=== PATIENT | male | born 1945 | race Caucasian/White ===

== ENCOUNTER → 2019-02-19 | Outpatient (CLI) | payer OTHER ==
[~2019-02-19] MED LIST: COZAAR 25 MG TA25 M2 PO; ELIQUIS5 MG PO; FLOMAX0.4 MG PO; METFORMIN HCL500 M3 PO; MULTAQ 400 MG400 MG PO
[2019-02-19 10:02] LABS: HEMATOCRIT 41.9 % (42.0-52.0); HEMOGLOBIN 14.1 gm/dL (14.0-18.0); MCH 30.6 pg (26.0-34.0); MCHC 33.6 g/dL (28.0-37.0); RBC 4.6 mil/uL (4.50-6.00); RDW 15.6 % (10.5-14.5); WBC 6.8 thou/uL (4.0-11.0)
[2019-02-19 10:21] LABS: ALBUMIN 3.3 g/dL (3.4-5.0); CREATININE 1.2 mg/dL (0.7-1.3); POTASSIUM 4.8 mmol/L (3.5-5.1); TOTAL BILIRUBIN 1.4 mg/dL (<0.1-1.0); TOTAL PROTEIN 7.1 g/dL (6.4-8.2)
== END ==
LOC: CAT 09:04
PROVIDERS: Internal Medicine Cardiovascular Disease
DX: J43.9 Emphysema, unspecified (principal); I25.10 Atherosclerotic heart disease of native coronary artery without angina pectoris; K80.20 Calculus of gallbladder without cholecystitis without obstruction; M47.814 Spondylosis without myelopathy or radiculopathy, thoracic region

== ENCOUNTER 2019-02-26 09:20 | Observation (INO) | payer OTHER ==
[~2019-02-26] VITALS: Ht 175.3 cm; Wt 88.7 kg
[2019-02-26] VITALS (16 sets, daily range): BP systolic 125–154; BP diastolic 76–99
[2019-02-26] MEDS ORDERED: ELIQUIS5 MG PO (10:14)
[2019-02-26] MEDS ORDERED: METFORMIN HCL500 M3 PO (10:15)
[2019-02-26] MEDS ORDERED: COZAAR 25 MG TA25 M2 PO (10:15)
[2019-02-26] MEDS ORDERED: FLOMAX0.4 MG PO (10:16)
[2019-02-26 10:17] LABS: HEMATOCRIT 38.7 % (42.0-52.0); HEMOGLOBIN 12.9 gm/dL (14.0-18.0); MCH 30.3 pg (26.0-34.0); MCHC 33.3 g/dL (28.0-37.0); MCV 91.1 fL (80.0-100.0); PLATELET COUNT 302 thou/uL (150-400); RBC 4.25 mil/uL (4.50-6.00); WBC 5.8 thou/uL (4.0-11.0)
[2019-02-26 10:32] LABS: CALCIUM 9.9 mg/dL (8.5-10.1); CREATININE 1.1 mg/dL (0.7-1.3); POTASSIUM 4.1 mmol/L (3.5-5.1)
[2019-02-26 10:36] LABS: ALBUMIN 3.1 g/dL (3.4-5.0); TOTAL BILIRUBIN 0.6 mg/dL (<0.1-1.0); TOTAL PROTEIN 7.2 g/dL (6.4-8.2)
[2019-02-26 10:40] LABS: APTT 31.3 Seconds (24.5-32.8); INR 1.1; PROTIME 11.6 Seconds (9.3-11.4)
[2019-02-26 11:41] LABS: ABSOLUTE NEUTROPHILS 3.6 thou/uL (1.4-8.2); METAMYELOCYTES 1 %; PLATELET ESTIMATE NORMAL
--- NOTE | 2019-02-26 19:26 | NUR ---
CCU OVERFLOW ADMIT TO ICU AT 1730. R GROIN HEMOSTASIS AT 1630, BEDREST X6H. KENJI DIET. DAUGHTER GIVEN ICU VISITOR POLICY.
[2019-02-27] VITALS (10 sets, daily range): BP systolic 118–143; BP diastolic 65–97
--- NOTE | 2019-02-27 07:19 | NUR ---
PT RESTED WELL THROUGHOUT THE NIGHT. ROGEL OUT AT 5:30. PT DUE TO VOID. PT OFF OXYGEN THIS AM. DRESSING INTACT. NO DRAINAGE.
[2019-02-27] MEDS ORDERED: MULTAQ 400 MG400 MG PO (08:57)
--- NOTE | 2019-02-27 15:00 | NUR ---
PATIENT ROGEL DISCONTINUED ON PSYCHOLOGY ASSISTANT THIS AM. NURSE BLADDER SCANNED HIM THIS AM AND FOUND HIM TO HAVE A VOLUME OF 93 ML. THIS WAS RELAYED TO CARDIOLOGY WHO EXPRESSED TO KEEP HIM UNTIL HE VOIDS. NURSE PROVIDED WATER THEN BLADDER SCANNED HIM AGAIN THIS AFTERNOON. HE HAD 150ML. HE WAS ABLE TO VOID AND THE VOLUME IS DOCUMENTED. HE WAS DISCHARGED TO HOME WITH DAUGHTER.
--- NOTE | 2019-03-01 12:27 | P ---
[facility] [place] [address] PROCEDURE REPORT Name: BRENDANLESLEE D Room #: 246-P [facility]..#: [id number] Admission: 02/26/19 Attend Phys: Toby Velasco MD Discharge: 02/27/19 Date of : 41 Report #: [id number] THIS REPORT FOR: //name// CC: Brennan Velasco DATE OF SERVICE: 02/26/2019 PREOPERATIVE DIAGNOSIS: Atrial fibrillation. POSTOPERATIVE DIAGNOSIS: Atrial fibrillation. PROCEDURES PERFORMED: 1. Atrial fibrillation ablation, CPT code 84302. 2. 3D mapping, CPT code 59827. 3. Intracardiac echo, CPT code 31459. 4. Focal ablation, CPT code 99045. HISTORY: The patient is a 73-year-old with coronary artery disease, status post CABG and AFib, here for ablation. ANESTHESIA: The patient underwent general anesthesia with no anesthesia-related complications. DESCRIPTION OF PROCEDURE: The patient underwent informed consent. We discussed the details of the procedure including the risks, which included but not limited to bleeding, vascular damage, cardiac perforation, stroke and OH. He understood these risks and is willing to proceed. The patient was brought to the EP laboratory in a fasting and sedated state, prepped and draped in a sterile fashion. I injected lidocaine at the right groin region, obtaining the access to the right femoral vein x 3, placing an 8, 9 and 7-Chinese short sheath. Next, under fluoroscopy, I placed a decapolar catheter easily in the coronary sinus, and ICE catheter in the right atrium. Using intracardiac ultrasound, I created a detailed 3D geometry of the left atrium with specific emphasis of the left and right-sided pulmonary veins. I merged this with the patient's cardiac CT scan. The patient was systemically heparinized, and a transseptal was performed using an SL1 sheath and a [place] needle. The SL1 sheath was advanced into the left atrium, and then I exchanged it for the cryo sheath. Next, via the cryo sheath, I placed a [employer] Ross LASSO catheter, and created a detailed 3D geometry and voltage map of the left atrium. At baseline, the patient was in atrial fibrillation with a ventricular cycle length of 815 milliseconds, QRS duration 85 milliseconds and a QT interval of 390 milliseconds. Next, I started by isolating the left superior pulmonary vein. I performed two 4-minute freezes in this vein. During the first freeze, the vein isolated within 80 seconds, but when it thawed it had reconnected. I [facility] [address] [place] [address] PROCEDURE REPORT Name: LESLEE CARDONA Chencho Room #: 246-P [facility]..#: [id number] Admission: 02/26/19 Attend Phys: Toby Velasco MD Discharge: 02/27/19 Date of : 41 Report #: [id number] performed a second freeze with very good temps and then it appeared to have isolated during this second freeze. The patient did have a slight vagal response with some bradycardia and hypotension after freezing the left superior pulmonary vein. I then turned my attention to the left inferior pulmonary vein. I performed a 4-minute freeze, followed by a 3-minute freeze. This vein isolated during the first freeze within 20 seconds. I then turned my attention to the right-sided pulmonary veins. Of note, I had difficulty finding a good phrenic nerve for pacing. It was slightly weaker phrenic nerve than usual. Therefore, I monitored it very closely. The right superior pulmonary vein underwent an initial freeze that came off after about 40 seconds due to poor temps. I then performed a second freeze and the attempts were much better, but I came off of at 190 seconds as the phrenic nerve appeared to be weakening. I therefore went and performed a roofline. I performed a posterior roofline with 3 lesions anchored from the left superior pulmonary vein and 3 lesions from the right superior pulmonary vein; each lesion set was of 3 minutes' duration. I also performed 2 freezes of the posterior wall, anchored from the left inferior pulmonary vein. I then went and re-interrogated the right superior pulmonary vein. This remained isolated from the first freeze. I then turned my attention to the right inferior pulmonary vein. I performed a 190-second freeze, came off early as this had slightly weakened. At this point, I decided to perform a voltage map and the right inferior pulmonary vein was still connected, but the other veins were all isolated. After I waited for a period of time, I performed two 3-minute freezes of the right inferior pulmonary vein, somewhat sub-selective and focusing on the inferior aspect of the vein, which by voltage map was still connected. After performing these 2 freezes, a repeat voltage map was performed. There was wide circumferential ablation of the pulmonary veins as well as isolation of the roofline. There was still a stripe of atrial tissue at the posterior aspect of the left atrium. Post-ablation, the right phrenic was back to its full strength. The patient underwent successful DC cardioversion with mandaeism of sinus rhythm. Intracardiac ultrasound verified there was no pericardial effusion. A voltage map was created in sinus rhythm, which showed wide circumferential ablation of all veins. The patient then received systemic protamine, and once the ACT was within acceptable range, catheters and sheaths were pulled and hemostasis was obtained. A [id number] suture was deployed to the right groin region. There were no procedure-related complications. CONCLUSIONS: 1. Successful wide circumferential ablation of the pulmonary veins. 2. Successful posterior wall isolation. <ELECTRONICALLY SIGNED> By: Toby Velasco MD 03/01/19 1227 [id number] Toby Velasco MD /nt
== END 2019-02-27 15:13 | disposition home or self-care (01) ==
LOC: CATH → ICU 17:32 → CATH 17:33 → ICU 17:33
PROVIDERS: ADMIT Internal Medicine Cardiovascular Disease
DX: I48.0 Paroxysmal atrial fibrillation (principal); J44.9 Chronic obstructive pulmonary disease, unspecified; E78.5 Hyperlipidemia, unspecified; I73.9 Peripheral vascular disease, unspecified; E11.9 Type 2 diabetes mellitus without complications; I25.10 Atherosclerotic heart disease of native coronary artery without angina pectoris; E78.00 Pure hypercholesterolemia, unspecified; Z79.899 Other long term (current) drug therapy; Z87.891 Personal history of nicotine dependence
CPT/HCPCS: 10078; 62110; 62900; 70005

== ENCOUNTER → 2019-05-29 | Outpatient (CLI) | payer OTHER | LOC: SJCVC 10:17 | DX: I45.10 Unspecified right bundle-branch block (principal); I48.91 Unspecified atrial fibrillation; I25.10 Atherosclerotic heart disease of native coronary artery without angina pectoris; E78.5 Hyperlipidemia, unspecified; I73.9 Peripheral vascular disease, unspecified; Z79.899 Other long term (current) drug therapy ==

== ENCOUNTER → 2019-09-18 | Outpatient (CLI) | payer OTHER | LOC: SJCVC 10:00 | DX: R94.31 Abnormal electrocardiogram [ECG] [EKG] (principal); I45.10 Unspecified right bundle-branch block; I48.0 Paroxysmal atrial fibrillation; I25.10 Atherosclerotic heart disease of native coronary artery without angina pectoris; I73.9 Peripheral vascular disease, unspecified ==